=== PATIENT | female | born 1940 | race Caucasian/White ===

== ENCOUNTER 2016-05-04 06:44 | Day surgery (SDC) | payer MEDICARE, MEDICAID ==
[~2016-05-04] VITALS: Ht 162.6 cm; Wt 62.6 kg
[~2016-05-04 06:44] MED LIST: ACIPHEX20 MG PO; ATIVAN-DPS1 MG PO; CHERATUSSIN AC473 ML PO; COUMADIN DPS2 MG PO; COUMADIN1 MG PO; ECOTRIN81 MG PO; GLUCAGON1 MG/ML SQ; HUMALOG100 UNIT/1 SQ; KLOR-CON M2020 ME1 PO; LACTULOSE10 GM/15 M PO; LANTUS100 UNITS/ SQ; MIRALAX DPS17 GM PO; MYCOSTATIN PWD15 GM TP; MYCOSTATIN500000 UNI PO; NOVOLOG100 UNIT/2 SQ; OXY IR DPS5 MG PO; PEPCID DPS20 MG PO; PHENERGAN DPS25 MG PO; PROAIR RESPICL90 MCG IH; PROVENTIL2.5 MG/3 M IH; REGLAN DPS5 MG PO; SURFAK DPS240 MG PO; TESSALON PERLE100 M1 PO; TYLENOL DPS325 MG PO; VIBRAMYCIN-DPS100 M2 PO; ZANTAC DPS150 MG PO; ZOFRAN ODT4 MG PO; [UNRECOGNIZED DRUG - OTHER] MS; [UNRECOGNIZED DRUG - OTHER] TP; [UNRECOGNIZED DRUG - OTHER] TP
[2016-06-29] MEDS ORDERED: ZOFRAN ODT4 MG PO (10:48)
[2016-06-29] MEDS ORDERED: VOLTAREN 1% GE100 GM TP (10:55)
[2016-06-29] MEDS ORDERED: LIDOCAINE30 GM TP (10:55)
[2016-06-29] MEDS ORDERED: HYDROCODON-ACE1 EAC4 PO (10:56)
[2016-06-29] MEDS ORDERED: ATIVAN-DPS1 MG PO (10:56)
[2016-06-29] MEDS ORDERED: ATROPINE 1% SL (10:57)
== END 2016-05-04 10:25 | disposition home or self-care (01) ==
LOC: RAD.S 06:44 → EDSTATUS 08:00 → RAD.S 10:25
PROC: B51WYZZ Fluoroscopy of Dialysis Shunt/Fistula using Other Contrast (ICD-10-PCS; principal; 2016-05-04)
DX: T82.858A Stenosis of other vascular prosthetic devices, implants and grafts, initial encounter (principal); N18.6 End stage renal disease; Z88.0 Allergy status to penicillin; Z88.8 Allergy status to other drugs, medicaments and biological substances; Z79.82 Long term (current) use of aspirin; Z79.2 Long term (current) use of antibiotics; Z79.899 Other long term (current) drug therapy

== ENCOUNTER → 2016-05-14 | Outpatient (CLI) | payer MEDICARE, MEDICAID ==
[~2016-05-14] MED LIST changes: +ATROPINE 1% SL; +HYDROCODON-ACE1 EAC4 PO; +LIDOCAINE30 GM TP; +VOLTAREN 1% GE100 GM TP
== END | disposition home or self-care (01) ==
LOC: PTH.S 16:24
DX: N18.6 End stage renal disease (principal)

== ENCOUNTER 2016-05-17 09:12 | Day surgery (SDC) | payer MEDICARE, MEDICAID ==
[~2016-05-17] VITALS: Ht 162.6 cm; Wt 63.7 kg
[~2016-05-17 09:12] MED LIST changes: -ATROPINE 1% SL; -HYDROCODON-ACE1 EAC4 PO; -LIDOCAINE30 GM TP; -VOLTAREN 1% GE100 GM TP
[2016-06-29] MEDS ORDERED: ZOFRAN ODT4 MG PO (10:48)
[2016-06-29] MEDS ORDERED: VOLTAREN 1% GE100 GM TP (10:55)
[2016-06-29] MEDS ORDERED: LIDOCAINE30 GM TP (10:55)
[2016-06-29] MEDS ORDERED: HYDROCODON-ACE1 EAC4 PO (10:56)
[2016-06-29] MEDS ORDERED: ATIVAN-DPS1 MG PO (10:56)
[2016-06-29] MEDS ORDERED: ATROPINE 1% SL (10:57)
== END 2016-05-17 13:47 | disposition home or self-care (01) ==
LOC: RAD.S 09:12 → EDSTATUS 11:00 → RAD.S 13:47
PROC: B51WYZZ Fluoroscopy of Dialysis Shunt/Fistula using Other Contrast (ICD-10-PCS; principal; 2016-05-17)
DX: I72.1 Aneurysm of artery of upper extremity (principal); N18.6 End stage renal disease; Z79.899 Other long term (current) drug therapy; Z88.0 Allergy status to penicillin; Z88.2 Allergy status to sulfonamides; Z88.8 Allergy status to other drugs, medicaments and biological substances

== ENCOUNTER 2016-06-06 15:26 | Emergency (ER) | payer MEDICARE, MEDICAID ==
--- NOTE | 2016-06-17 19:38 | ER ---
ADMIT: 06/06/2016 RM/LOC: ER [facility] MR#: [id number] [address] [address] [place] [address] Emergency Room Report SEX: F AGE: 75 : 1940 DATE: 06/06/2016 CHIEF COMPLAINT: Swelling, left arm. HISTORY OF PRESENT ILLNESS: The patient is a 75-year-old female, who has end- stage renal disease, who has been on dialysis for several years now. She is currently getting dialysis Tuesday, Tuesday, Tuesday and uses a fistula in her left arm. Two weeks ago, she had a fistulogram done which showed a pseudoaneurysm and she had a stent placed across the pseudoaneurysm. They have been having some troubles recently when trying to access this fistula but have been able to use it as scheduled the last visit to dialysis. The patient denies any new pain but does admit that her arm is more swollen than normal. She has not had any fevers or chills, is having no redness or warmth in the arm. She has normal sensation distal to the fistula. She has had a problem with some blood in her stools previously, but at this point they have cleared, and she did have her Coumadin held in the last couple of weeks as her INR was too high. PAST MEDICAL HISTORY: 1. Type 2 diabetes. 2. Atherosclerosis of renal artery. 3. End-stage renal disease, on dialysis. 4. Atrial fibrillation, on Coumadin. 5. Coronary artery disease. MEDICATIONS: See nurse's note. ALLERGIES: SEE NURSE'S NOTE. PHYSICAL EXAMINATION: GENERAL: The patient is alert, able to interact and answer questions appropriately. HEART: Irregular, but not tachycardic. LUNGS: Clear to auscultation. ABDOMEN: Soft, nontender. EXTREMITIES: Examination of left upper extremity reveals she does have slightly edematous arm, but I can feel a thrill in her left upper arm where her fistulas are. She has some ecchymosis in this area but no erythema and no warmth. She is able to move the distal extremity without difficulty. SKIN: Warm and dry. ADMIT: 06/06/2016 RM/LOC: ER [facility] MR#: [id number] [address] [address] [place] [address] Emergency Room Report SEX: F AGE: 75 : 1940 EMERGENCY DEPARTMENT COURSE: Ultrasound of the left upper extremity demonstrates good flow in the fistula. There is some soft tissue edema, but I cannot appreciate any other abnormalities on her ultrasound. I did check some labs and her hemoglobin is stable on the high side for her. Her INR is 1.89. Her electrolytes were unremarkable other than a calcium of 7.8, and corrected calcium is 9.6. Plan at this time is to discharge the patient back to her facility and have her continue dialysis as planned this week. I did run the case by Dr. Chaidez and made him aware that patient was in the ER. DIAGNOSES: 1. Left arm edema. 2. End-stage renal disease. Randall Corley MD/ alfredol JOB #: [id number] CC: Santiago Wren MD, Attending Physician Stefany Marcelo MD, Family Physician
[2016-06-29] MEDS ORDERED: ZOFRAN ODT4 MG PO (10:48)
[2016-06-29] MEDS ORDERED: LIDOCAINE30 GM TP (10:55)
[2016-06-29] MEDS ORDERED: VOLTAREN 1% GE100 GM TP (10:55)
[2016-06-29] MEDS ORDERED: HYDROCODON-ACE1 EAC4 PO (10:56)
[2016-06-29] MEDS ORDERED: ATIVAN-DPS1 MG PO (10:56)
[2016-06-29] MEDS ORDERED: ATROPINE 1% SL (10:57)
== END 2016-06-06 17:50 | disposition home or self-care (01) ==
LOC: ER 15:26
DX: E11.22 Type 2 diabetes mellitus with diabetic chronic kidney disease (principal); N18.6 End stage renal disease; R60.9 Edema, unspecified; Z79.4 Long term (current) use of insulin; Z79.899 Other long term (current) drug therapy

== ENCOUNTER 2016-06-14 18:38 | Inpatient (IN) | payer MEDICARE, MEDICAID ==
[~2016-06-14] VITALS: Ht 162.6 cm; Wt 61.2 kg
--- NOTE | 2016-06-16 10:47 | CO ---
ADMIT: 06/14/2016 RM/LOC: 307 [facility] MR#: [id number] [address] [address] [place] [address] Consultation SEX: F AGE: 75 : 1940 DATE OF CONSULTATION: 06/15/2016 ATTENDING PHYSICIAN: Stefany Marcelo MD CONSULTING PHYSICIAN: Jahaira Chaidez MD REASON FOR CONSULTATION: End-stage renal disease, on hemodialysis. HISTORY OF PRESENT ILLNESS: The patient is a 75-year-old female with multiple medical comorbidities. She has most recently been on in-center hemodialysis. She was brought to the hospital yesterday after dialysis because of concerns of altered mental status. She was evaluated in the emergency room and was found to have a lactate of 7.1 as well. She was transferred to the ICU. She has been receiving IV antibiotics and she looks more alert now. Family is at her bedside. They are concerned about the fact that the dialysis unit did not notify them about a change in her condition. Diana insists that she has been on dialysis longer than her prescribed time, but one of her caregivers, Brock disagrees and states that she has been dialyzed as per schedule. At the time of this encounter, she has some back pain. Denies any dyspnea. She denies any angina. She is making some urine. She denies any abdominal pain. Brock reports an incident at the shelter where she had tugged on her catheter and she was bleeding for a little bit from her catheter exit site as well. PAST MEDICAL HISTORY: 1. Extensive history of cardiovascular disease including;. a. Hypertension. b. Coronary artery disease, status post CABG. 2. Type 2 diabetes mellitus. 3. Renal artery stenosis for which she had a bilateral stenting of renal artery. 4. Multiple acute kidney injury episodes. 5. End-stage renal disease, currently on hemodialysis. 6. Atrial fibrillation. 7. Chronic anemia. 8. Dyslipidemia. 9. Peripheral vascular disease. 10.Appendectomy. 11.Hysterectomy. 12.Vaginal prolapse. 13.Right carotid endarterectomy. 14.Left femur fracture, status post repair. 15.Left upper arm AV graft placement. 16.Peritoneal dialysis catheter placement. ALLERGIES: MULTIPLE ALLERGIES REVIEWED IN THE CHART. MEDICATIONS: Reviewed in the chart. ADMIT: 06/14/2016 RM/LOC: 307 [facility] MR#: [id number] [address] [address] [place] [address] Consultation SEX: F AGE: 75 : 1940 SOCIAL HISTORY: She currently lives in a shelter. No ongoing tobacco, alcohol, or recreational drug use. Her son Valentino is very involved in her care and so is one of her friends Brock. FAMILY HISTORY: Niece had end-stage renal disease, cause unknown. There is an extensive history of hypertension and family. PHYSICAL EXAMINATION: VITAL SIGNS: Temperature 97.3 Fahrenheit, pulse 59, blood pressure 160/87. GENERAL: She appears comfortable. HEENT: Head is nontraumatic and normocephalic. Pale conjunctivae. Moist mucosa. CHEST: Clear to auscultation. CVS: Regular rhythm. S1 and S2 heard. No rubs, murmurs, or gallops. ABDOMEN: Soft, nontender. EXTREMITIES: She has edema of her left arm. Her left upper arm graft has good thrill and bruit. LABORATORY DATA: Reviewed. BMP with sodium 143, potassium 4.4, creatinine 2.4, BUN is 9 only. Hemoglobin 12.7. Phosphorus 2.9. ASSESSMENT AND PLAN: 1. End-stage renal disease, on hemodialysis. 2. Hypertension. 3. Anemia. There is no emergent indication for renal replacement therapy at this time. She is chronically malnourished and has a BUN of only 9 despite having end- stage renal disease. Considering her elevated white count, I will obtain a peritoneal lavage to look for any evidence of peritonitis. I will also follow her for her dialysis needs during this hospitalization. Jahaira Chaidez MD/ hang JOB #: [id number] CC: Stefany Marcelo MD, Attending Physician Stefany Marcelo MD, Family Physician
--- NOTE | 2016-06-16 17:42 | ER ---
ADMIT: 06/14/2016 RM/LOC: 307 [facility] MR#: [id number] [address] [address] [place], [place] [id number] Emergency Room Report SEX: F AGE: 75 : 1940 DATE: 06/14/2016 TIME: 1837 Please refer to my T-sheet for complete H and P. HISTORY OF PRESENT ILLNESS: Briefly, the patient is a 75-year-old who has multiple significant past medical problems. Apparently, she has coronary artery disease. They are unable to do anymore specifically from the cardiology standpoint according to the son and Dr. Marcelo. She has atrial fibrillation. She is diabetic. She is hypertensive. She has end-stage renal disease, on dialysis. She was dialyzed and then just not acting herself recently. She has multiple medical allergies. She has been sick and not herself, her son brought her in for evaluation. Dr. Marcelo, I conversed with her, states she is a DNR. PHYSICAL EXAMINATION: VITAL SIGNS: Here blood pressure 124/91, pulse 102, respirations 26, temp 95.5, saturating 96%. GENERAL: She is in mild distress. HEENT: She has slightly pale conjunctiva. Mucous membranes are moist. LUNGS: Slightly coarse, moving adequate air. She has a little bit of froth in the mouth. She has been coughing. ABDOMEN: Soft. She has a peritoneal dialysis site that shows no evidence of severe cellulitis. EXTREMITIES: Trace edema. NEURO: She is alert, nonfocal. EMERGENCY DEPARTMENT COURSE: We did the whole sepsis protocol. We established an IV, originally I had locked it, I was concerned, she was in heart failure as her EKG was very tachycardic 160s-170s. She has again multiple medical allergies. We still did sepsis routine. I gave her a DuoNeb 0.25 IV, seemed to help. Her heart rate improved. We did finally get blood cultures, although it took multiple attempts. We started antibiotics afterwards for slowly bolusing the fluid. Originally, I did not want to do any; however, she seems to be tolerating things better, so we are going to slowly try to get the bolus in on the sepsis protocol. I talked to Dr. Marcelo. Dr. Marcelo was going to come in and talk to the patient. Her CBC was normal except white count 25.3, lactate was 7.1. Chemistries normal except creatinine 2.4, glucose 183. Again, blood cultures were sent. Chest x- ray revealed no acute findings. EKG was atrial fibrillation, rate 168, diffuse changes, which improved dramatically as above. ADMIT: 06/14/2016 RM/LOC: 307 [facility] MR#: [id number] [address] [address] [place], [place] [address] Emergency Room Report SEX: F AGE: 75 : 1940 ASSESSMENT: 1. Severe sepsis. 2. Atrial fibrillation with rapid ventricular response, improved with digoxin at this time. 3. Dialysis patient. 4. Elevated troponin. 5. Elevated lactate. 6. Critical care time of 75 minutes secondary to the multiple interventions and the severity of the patient, she has improved at this time. PLAN: Admit this patient to Dr. Marcelo. Parker Hopkins MD/ hang JOB #: [id number] CC: Stefany Marcelo MD, Attending Physician Stefany Marcelo MD, Family Physician
--- NOTE | 2016-06-20 21:46 | HP ---
ADMIT: 06/14/2016 RM/LOC: 307 [facility] MR#: [id number] [address] [address] [place] [address] History and Physical SEX: F AGE: 75 : 1940 DATE OF SERVICE: CHIEF COMPLAINT: Hypotensive, tachycardic, and feeling poorly. HISTORY OF PRESENT ILLNESS: Diana is a chronically ill, 75-year-old white female, who has been residing at [facility] temporarily as she gets stronger to return home. There was actually some discussion about her returning home after her dialysis today. Her son, Valentino, had actually had lunch with her earlier that day and she was actually doing okay. She went to dialysis and just started feeling poorly. She felt nauseous, just could not explain why or how she felt bad, but just felt awful. When Valentino had come by to pick her up later in the afternoon, he was told that they might have been trying to run her longer. He was not really sure what they were talking about, but I was taking it to mean that they were possibly running her longer to get her to possibly a dry weight or to remove more fluid. Regardless, Valentino went back to see her and she looked awful. She was confused, hypotensive, and clearly not herself. Valentino called 911 to come, evaluate, and pick her up to take her to the emergency room for evaluation. In the squad, her blood pressure was noted to be 72/40 with a heart rate of 125. There were some documented episodes where her heart rate was actually up into the 180s with atrial fibrillation. She arrived in the emergency room and a sepsis evaluation was begun. Her white blood count was noted to be 25.3. EKG did show some SVT versus atrial fibrillation with rapid ventricular response. Her lactic acid level was 7.1. Troponin was slightly elevated but likely more demand ischemia than anything. She was given a fluid bolus quite gingerly because of her fluid issues and dialysis. She responded well. For her rapid heart rate and her multiple allergies, they decided to give her a dose of digoxin 0.125 which did improve things. Cultures were obtained, although urine was not actually sent down. Chest x-ray looked unremarkable. As Valentino mentioned, she was actually looking and feeling pretty good and was hoping to go home. She is admitted at this time for further evaluation. PAST MEDICAL HISTORY: 1. Diabetes with complications, uncontrolled-started insulin 04/28, retinopathy August 2011. 2. AV fistula thrombosis, status post left brachiocephalic fistula declotting 07/03/2015, fistulogram 04/21/2016. 3. Bilateral edema of the lower extremity. 4. Bradycardia-ZIO patch 08/04/2012 with heart rate down to 45, need to be cautious with her beta blockers and negative inotropes. 5. Coronary artery disease-stent LAD and PTCA of the first diagonal in , cath 02/22 with left renal 99%, right renal 60% with second stent in LAD, Cardiolite 01/25 was abnormal, cath 01/25 with patent stents of the LAD, 40% LAD, left circumflex was okay, RCA 70% to 80% and bilateral renal artery stenosis with left renal artery stent 40% stenosis and right ute artery 75% stenosis, status post Taxus stent RCA 02/26, Ticlid x6 months, Cardiolite 05/23/07, cath 05/24/07 with intermediate epicardial coronary artery disease with EF 70% to 75%, echo 04/23/2009 with EF 55% to 60%, LVH and posterior and lateral hypokinesis, anterior wall NE ADMIT: 06/14/2016 RM/LOC: 307 [facility] MR#: [id number] [address] [facility] [address] [place], [place] [address] [place] [address] History and Physical SEX: F AGE: 75 : 1940 09/28/2011, to coronary, cath 09/28/2011 with LAD thrombectomy, PTCA of proximal and distal LAD with intraoperative balloon pump, intraoperative HUMA with mild concentric LVH and inferior wall ischemia, emergent CABG x4 (KNIGHT to LAD, reverse SVG to diagonal and OM1 and OM2) on 09/28/2011 complicated by acute renal failure and need for dialysis (? Aquapheresis), status post PTCA of RCA with Resolute drug-eluting stent and mid RCA x2 with Resolute drug-eluting stent on 10/18/2011, Lexiscan Cardiolite 01/09/[address] depression inferior lateral, cardiac cath 01/17/2013 with likely closed SVG to OM1 and OM2. In-stent restenosis of left renal artery 55% to 60%, echo 10/01/2013 with EF 60% to 65% in [place] for AV fistula, EKG changes noted, echo 01/01/2014 with EF 60% and LVH, cath 01/01/2014 with an 80% LAD, 100% proximal circumflex, 50% RCA with stent, and 100% SVG to D1. 6. Cataract, left . 7. Celiac artery stenosis-CTA abdomen and pelvis 10/26/2011 with moderate focal stenosis of the proximal celiac artery, CTA 04/06/2016 with advanced atherosclerotic disease of the abdominal aorta, high-grade stenosis of the celiac axis just distal to the origin and small indeterminate nodule in the right lung base to the vascular surgeon (Dr. Coronado), on 04/19/2016, who felt that arcuate ligament was compressing the celiac artery with no other signs of ischemia, likely gastroparesis or some other issue. 8. Closed comminuted intra-articular fracture of the distal end of the left femur, status post ORIF 08/26/2013. 9. Acute on chronic combined systolic and diastolic congestive heart failure- dialysis 10/04. Coumadin therapy. 10.Cerebral infarction-CT head 03/20/2013 with old right frontal CVA, CT head 07/20/2013, MRI of the brain 07/23/2013 with subacute infarcts of the right occipital lobe and left cerebellum. 11.Diabetic retinopathy, nonproliferative, severe status post parafoveal laser 09/17/2011 due to edema, status post Avastin injection right eye 09/19/2012. 12.Diabetes uncontrolled with neuropathy. 13.End-stage renal disease, on hemodialysis-right IJ tunneled dialysis catheter 10/03/2013, plan left brachial basilic AV fistula 11/27/[address] [place] [address] Zamora, but was canceled due to EKG changes in the preop 01/01/2014, and cardiac workup okay, left AV fistula 03/26/2014, left arm brachial axillary aorto-venous graft construction 08/15/2014, insertion of peritoneal dialysis catheter 01/14/2015 for peritoneal dialysis, converted back to hemodialysis on 04/06/2016. 14.Gastric reflux. 15.Generalized headaches. 16.Healthcare maintenance-Pap 05/1997, mammogram 04/2006, exam 11/10/2011, MRI with MRA of the head 06/25/2015, MRI of the head 07/04/2015, CT head 07/03/2015, carotid ultrasound 06/25/2015, arterial Doppler lower extremity 03/2005, ultrasound of the kidney 07/26/2013 with Doppler, colonoscopy 02/27/2008, echo with bubble 07/05/2015, EEG 06/25/2015, Lexiscan Cardiolite 01/09/2013, cath 01/17/2013, intraoperative HUMA ADMIT: 06/14/2016 RM/LOC: [address] [place] [address] MR#: [id number] [address] [address] [place] [address] History and Physical SEX: F AGE: 75 : 1940 09/28/2011, MRI of lumbosacral spine 10/15/2008, CT abdomen and pelvis (celiac artery) 04/06/2016, ZIO patch 08/04/2012, modified barium swallow 07/08/2014 and ultrasound left upper extremity 04/11/2016. High risk medication with Benicar, Crestor, and Lasix. 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 18.Hyperkalemia. 19.Hypertension-urine metanephrine 06/28, plasma catecholamine 06/28, labs 09/29, including PTH, cystatin C, 24-hour urine metanephrine, dopamine, cortisols, plasma, renin, and aldosterone, increased cortisol which was minor sent to [facility]. Dr. Coronado did renal angiogram 10/18/2008 and that was normal, Dr. Gray for catheter ablation of the right saphenous vein bilaterally, but was not done. Dr. Jacobson 12/02 suggested doxazosin instead of clonidine due to dry mouth if needed. 20.Hypertensive retinopathy of both eyes. 21.Hypokalemia. 22.Hyponatremia. 23.Hysterectomy with incidental appendectomy for irregular cells. 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 Trent who suggested Nasonex. CT sinus, chest x-ray for bronchiectasis and IgG subclasses, SPEP and albumin as well as pre/post vaccination titers of tetanus, diphtheria, and pneumococcus, consider IVIG. 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 26.Lumbar spine stenosis-MRI lumbosacral spine 10/15/2008 with mild levoscoliosis, DJD, moderate central stenosis and mild right foraminal stenosis L4-L5, status post epidural 10/23/2008. 27.Nausea. 28.TIA, right hand numb and speech problems status post left CEA 07/31. 29.Paroxysmal atrial fibrillation. 30.Peripheral vascular disease-carotid ultrasound 01/2007 with 80% to 90% on the right, 50% to 70% on the left, status post right CEA 02/28, ultrasound carotid 04/03/2008 with moderate left carotid artery stenosis at 50% to 79%, repeat in six months, worse left CEA 07/22/2009, ultrasound of the carotid 09/07/2010. Rectocele on exam 07/[address] Dimas at [place]. 31.Renal artery stenosis-catheterization 02/22 with left 99%, and the right 60%, status post left renal artery angioplasty 04/22, bilateral renal arteriogram 02/26 with left stent 40% and in-stent restenosis and right 75% status post right renal artery [employer]/stent and left renal artery [employer] 04/26, Ticlid for six months, renal artery Doppler 07/24/2007 was normal, renal ultrasound with Doppler 10/24/2011 was normal. CTA abdomen and pelvis 10/26/2011 with patent renal artery stents. 32.Renovascular hypertension. 33.PICC line tunneled on the right side in the past. 34.Obstructive sleep apnea-sleep study 05/14/2009 with SVT and mild positional sleep apnea, AHI up to 30, sleep on her side and consider CPAP. ADMIT: 06/14/2016 RM/LOC: 307 [facility] MR#: [id number] [address] [address] [facility] [place]NOTE 2] [place] [address] History and Physical SEX: F AGE: 75 : 1940 35.Diabetes uncontrolled with retinopathy. 36.Varicose veins-status post right greater saphenous vein with radiofrequency obliteration 10/29/2009. Vitamin D deficiency. 37.Peritoneal dialysis catheter infection-culture 08/18/2014, with GPR moderate and possible Actinomyces/Nocardia. 38.Pulmonary nodule-CTA 04/06/2016 with advanced atherosclerotic disease of the abdominal aorta, high-grade stenosis of the celiac axis just distal to the origin of the small indeterminate nodule in the right lung base. Repeat CT chest was due 04/10. 39.VRE-urine 01/12/2016, treat if symptoms and/or referred to Dr. Cosme. MEDICATIONS: Per my chart it is; 1. Tylenol 650 b.i.d. 2. Proventil inhaler two puffs q.6h p.r.n. and nebulizers as needed. 3. Aspirin 81 mg daily. 4. Tessalon Perles 1 to 2 twice daily as needed. 5. Clonidine 0.2 b.i.d. 6. Lantus 3 units daily. 7. Humalog 3 units before meals and sliding scale with less than 200, 0; 200- 250, 4; 251-300, 6; 301-350,8; 351-400, 10; and over 401, 12 units. 8. Reglan 5 mg q.8h p.r.n. 9. Nystatin powder p.r.n. 10.Roxicet 1 to 2 q.6h p.r.n. 11.AcipHex 20 mg daily in the evening. 12.Zantac 150 mg in the morning. ALLERGIES: 1. PENICILLIN, RASH. 2. PLAVIX, HIVES. 3. SULFA, HIVES. 4. TICLID, HIVES. 5. ASPARTAME, HIGH BLOOD PRESSURE. 6. ADALAT CC, SHE ENDED UP IN THE ER. 7. PROCARDIA, CAUSE CHEST PAIN AND INCREASED BLOOD PRESSURE. 8. ALDACTONE, HYPONATREMIA AT HIGH DOSE, AND EDEMA AT LOW-DOSE. 9. AMARYL, INCREASED APPETITE. 10.AVANDIA, EDEMA. 11.COREG, HIGH BLOOD PRESSURE. 12.CRESTOR, MUSCLE PAIN. 13.DOXAZOSIN, LEG SWELLED AND SHE FELT BAD. 14.EDARBI, HIGH BLOOD PRESSURE. 15.METFORMIN, ABDOMINAL PAIN. 16.HYDRALAZINE, NAUSEA, VOMITING, CHEST TIGHTNESS, TOLERATED ORAL OF 06/06 (? PRIOR CARDIAC ISSUES). 17.HYDROCHLOROTHIAZIDE, SWELLING. 18.JANUVIA, DEPRESSION. 19.KEFLEX, TINNITUS. 20.LISINOPRIL, COUGH. ADMIT: 06/14/2016 RM/LOC: [address] [place] [address] MR#: [id number] [address] [address] [place] [address] History and Physical SEX: F AGE: 75 : 1940 21.LIPITOR, MUSCLE PAIN. 22.PRILOSEC WAS INEFFECTIVE. 23.TENORMIN, SWELLING. 24.TOPROL, BRADYCARDIA. 25.XANAX, MAKES HER MEAN. 26.ZETIA, MUSCLE PAIN. SOCIAL HISTORY: Former smoker. She has not used chewing tobacco. No alcohol. No drugs. 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 FAMILY HISTORY: Mother with hypertension, heart disease at age 80, and diabetes. Father of lung cancer with asbestosis. Sister with hypertension, heart disease at age 68. Another sister with breast cancer in January 2004. Another sister with diabetes. Maternal aunt with heart disease at 40, and another one at 50. Maternal uncle with heart disease at 50. Cousin with kidney disease on dialysis. A niece with kidney disease on dialysis. REVIEW OF SYSTEMS: Has just been declining overall over the last few months. Chronic nausea. Does not get along very much. She just seems a little more dazed and not as in-charge of her life as she usually is. Swelling. Left arm especially is always swollen. Dopplers have always been negative. PHYSICAL EXAMINATION: VITAL SIGNS: Blood pressure 72/40, and pulse 125 when she was picked up by the squad. Heart rate did get up to the 160 to 180 range. Final vitals were blood pressure of 124/91, pulse of 107, respirations 24, temp 95.5, saturation 96%. GENERAL: This is a pale, elderly female, who appears her stated age. SKIN: Warm to the touch. HEENT: Normocephalic, atraumatic, anicteric. Mucous membranes are very dry. NECK: Supple. LUNGS: Diminished, but clear. CARDIOVASCULAR: Distant. Regular and tachycardic. ABDOMEN: Soft. Bowel sounds present. Nontender. /RECTAL: Deferred. EXTREMITIES: With 1+ edema throughout. Left upper extremity is 4+. IMPRESSION: 1. Systemic inflammatory response syndrome with hypotension and tachycardia. 2. Atrial fibrillation with rapid ventricular response-likely related to illness. 3. Lactic acid elevated at 7.1. 4. Elevated white blood count. 5. Hypotension-resolved. 6. Diabetes. 7. End-stage renal disease-hemodialysis. DISCUSSION: She looked much better than when she first arrived. Gentle hydration. We will adjust some of her medications. She is a little bit ADMIT: 06/14/2016 RM/LOC: 307 [facility] MR#: [id number] 2620 [facility] [address] [place] [phone] [place] [address] History and Physical SEX: F AGE: 75 : 1940 confused at this time which is not a surprise. We will monitor things from here. We will not follow this sepsis protocol because I think some of this might be dehydration and weight related which would cause all of the lab findings and physical findings that we are finding including hypotension, tachycardia, elevated white count, and elevated troponin. We will try and get her hemodynamically more stable and assess as we go along. She has a terrible IV stick. We will need to get a PICC line in the morning, and in the mean time, we will not repeat labs or if we do we will keep them to a minimum. PLAN: See chart for orders thanks. Setfany Marcelo MD/ hang JOB #: [id number] CC: Stefany Marcelo MD, Attending Physician Stefany Marcelo MD, Family Physician . [facility] Jahaira Chaidez MD
[2016-06-29] MEDS ORDERED: ZOFRAN ODT4 MG PO (10:48)
[2016-06-29] MEDS ORDERED: LIDOCAINE30 GM TP (10:55)
[2016-06-29] MEDS ORDERED: VOLTAREN 1% GE100 GM TP (10:55)
[2016-06-29] MEDS ORDERED: ATIVAN-DPS1 MG PO (10:56)
[2016-06-29] MEDS ORDERED: HYDROCODON-ACE1 EAC4 PO (10:56)
[2016-06-29] MEDS ORDERED: ATROPINE 1% SL (10:57)
--- NOTE | 2016-07-06 21:20 | DS ---
ADMIT: 06/14/2016 RM/LOC: 517 [facility] MR#: [id number] [address] [address] [place] [address] Discharge Summary SEX: F AGE: 75 : 1940 ADMISSION DATE: 06/14/2016 DISCHARGE DATE: 06/28/2016 DIAGNOSES: 1. SIRS (systemic inflammatory response syndrome). 2. Atrial fibrillation with rapid ventricular response. 3. End-stage renal disease, on hemodialysis. 4. Lactic acidosis. 5. Diabetes-insulin requiring, with complications uncontrolled. 6. Coronary artery disease, status post CABG (coronary artery bypass graft). 7. Delirium-improved. 8. DNR/DNI (do not resuscitate/do not intubate). 9. Hypertension. 10.Peripheral vascular disease. 11.Nausea. 12.Dysphagia. 13.Foot pain. PROCEDURES: 1. CT head 06/18/2016 with no acute changes. 2. Peritoneal dialysis. CONSULTS: Dr. Chaidez. REASON FOR HOSPITALIZATION: Hypotensive and tachycardic. See dictated H and P. LABORATORY AND X-RAY DATA: Sodium 138, potassium is 4, chloride 101, CO2 29, BUN 11, creatinine 2.3, blood sugar variable, calcium 7.39, phosphorus 2.9, total bilirubin 0.6, total protein 6.4, albumin 2.3, alkaline phosphatase 202, AST 31, ALT 15, magnesium 2.1. CK 42, CK-MB 1.3. Troponin 0.130. Vanco random 20.9 on final check which was in the early part of her hospitalization. INR on admission was 1.88, checked again 3.03 and subsequently Coumadin was stopped. Blood sugars were variable. Early on they were checked and cancelled towards the end. White count 25.3 down to 6.4, hemoglobin 9.2, platelet count 312. Urine culture was requested but I do not see that one was ever done. COURSE IN HOSPITAL: Diana was admitted from dialysis quite ill. She was tachycardic with relative hypotension and decreased alertness. She was given a very low fluid bolus because of her hemodialysis status. She did seem to respond quite nicely to this. Vancomycin and aztreonam were also given. Dr. Chaidez was asked to follow along. Questioned about what her dry weight might be or if this was a manifestation of an infection like a urinary tract infection. She was nauseated. Zofran, Phenergan as well as Reglan were ordered. She was placed on Zantac. Supportive care was given. By the next day, she was feeling a little bit better. Her blood pressure was all over the place again. She again was feeling a little bit better. She had a lot of anxiety about continuing with dialysis. She has not been happy after having ADMIT: 06/14/2016 RM/LOC: 517 [facility] MR#: [id number] [address] [place] [id number] [place] [address] Discharge Summary SEX: F AGE: 75 : 1940 returned to this mode of dialysis. A lot of anxiety regarding starting it up again. The lactic acid was felt to be related to the perfusion and hypotension as she really became less likely from an infection. Primarily felt that a lot of stuff was the microvascular disease that goes along with dialysis patients and underlying peripheral vascular disease and cardiac disease which she has an extensive amount of. Instead of hemodialysis, we tried to go back to peritoneal dialysis on 06/15. She performed this and the following day, she was worse. Abdominal pain radiating up into her chest, worsening nausea. She confirmed DNR/DNI. Medications were given to try and get her blood pressure down which was elevated more of into her baseline level but also because of her discomfort. A Catapres patch was placed and Dilaudid was given for pain as well as antiemetics. This began the discussion about what our goal of therapy is. She really did not want to continue dialysis in any way. She did not tolerate peritoneal so we went back to hemodialysis. She was down in hemodialysis and had a terrible time not responding as well, increased pain and confusion. She refused to complete the final dialysis and decided she would not return. This prompted multiple discussions with family regarding goals of care. It was elected that she would transition to comfort care. Diana has not been very open to hospice due to previous people she knew and their experiences so hospice was not involved but the philosophy was started. That being, plan was for comfort and quality of life. With regards to blood pressure, she elected to not take any medications. We are just using medications that are known to cause comfort for her. Many of her medications were discontinued at her or family request. We adjusted other things including pain medications with topical creams with some improvement. Amazingly, Diana started having some worsening secretion issues and dysphagia, but on the days prior to discharge, she was increasingly alert, conversant and eating. She was anxious to go home. It was elected that when she returned home, she would go with hospice and other caregivers. She is anxious to do so. DISCHARGE INSTRUCTIONS: Discharge instructions once they in place include going home with hospice of choice and family and other caregivers. We will arrange for caregivers in the home as well as hospice. Family will also be doing some of the caregiving. Overall prognosis is poor. Time spent was 40 ADMIT: 06/14/2016 RM/LOC: 517 [facility] MR#: [id number] [facility] [address] [place] [phone] [place] [place], [place] [address] Discharge Summary SEX: F AGE: 75 : 1940 minutes. DISCHARGE MEDICATIONS: 1. Tylenol oral and suppository 650 q.4h p.r.n. 2. Atropine drops 1-2 drops every two p.r.n. secretion. 3. Lidocaine cream to her feet 3% or Voltaren gel every eight p.r.n. 4. Ativan 1 mg 1/2 to 1 q.4h p.r.n. 5. Hydrocodone 5/325 1-2 q.4h p.r.n. 6. Zofran ODT 4 mg q.6h p.r.n. 7. Robitussin AC 1-2 teaspoons q.4h p.r.n. Stefany Marcelo MD/ vdg JOB #: [id number] CC: Stefany Marcelo MD, Attending Physician Stefany Marcelo MD, Family Physician Jahaira Chaidez MD
== END 2016-06-28 14:24 | disposition hospice, home (50) | DRG 308 ==
LOC: ER 18:38 → 5MS 21:45 → 3ICU 21:45 → 5MS 06-21 00:48
PROVIDERS: ADMIT Internal Medicine
PROC: 02HV33Z Insertion of Infusion Device into Superior Vena Cava, Percutaneous Approach (ICD-10-PCS; principal; 2016-06-15)
PROC: 5A1D60Z (ICD-10-PCS; 2016-06-16)
DX: R00.0 Tachycardia, unspecified (principal); G93.41 Metabolic encephalopathy; I13.2 Hypertensive heart and chronic kidney disease with heart failure and with stage 5 chronic kidney disease, or end stage renal disease; E44.0 Moderate protein-calorie malnutrition; E87.2 Acidosis; N18.6 End stage renal disease; R13.10 Dysphagia, unspecified; D80.3 Selective deficiency of immunoglobulin G [IgG] subclasses; N39.0 Urinary tract infection, site not specified; I50.42 Chronic combined systolic (congestive) and diastolic (congestive) heart failure; I95.3 Hypotension of hemodialysis; Z51.5 Encounter for palliative care; M79.673 Pain in unspecified foot; E11.65 Type 2 diabetes mellitus with hyperglycemia; F41.9 Anxiety disorder, unspecified; I73.9 Peripheral vascular disease, unspecified; D63.1 Anemia in chronic kidney disease; E11.22 Type 2 diabetes mellitus with diabetic chronic kidney disease; G47.33 Obstructive sleep apnea (adult) (pediatric); E11.40 Type 2 diabetes mellitus with diabetic neuropathy, unspecified; I48.91 Unspecified atrial fibrillation; I25.10 Atherosclerotic heart disease of native coronary artery without angina pectoris; E11.319 Type 2 diabetes mellitus with unspecified diabetic retinopathy without macular edema; E86.0 Dehydration; K21.9 Gastro-esophageal reflux disease without esophagitis; M48.06 Spinal stenosis, lumbar region; Z86.73 Personal history of transient ischemic attack (TIA), and cerebral infarction without residual deficits; Z99.2 Dependence on renal dialysis; Z79.82 Long term (current) use of aspirin; Z66 Do not resuscitate; Z79.4 Long term (current) use of insulin; Z95.828 Presence of other vascular implants and grafts